=== PATIENT | male | born 1955 | race Two or more races ===

== ENCOUNTER 2020-11-27 10:19 | Inpatient (IN) | payer OTHER ==
[~2020-11-27] VITALS: Ht 182.9 cm; Wt 80.3 kg
--- NOTE | 2020-11-27 10:29 | NUR ---
PT BIBRA TO ER BED 09, PER EMS REPORT GIRLFRIEND WAS TAKING HIM TO OR FOR A CHECK UP WHEN SHE NOTED PATIENT WAS HAVING SEIZURE LIKE ACTIVITY SO SHE HAS TO MACHINE ROPE MAKER AND CALL 911. PT IS AWAKE, VERBALLY RESPONSIVE WITH MILD CONFUSION. DENIES ANY SEIZURE HISTORY. GOWNED AND PLACED ON MONITOR. PLACED ON SEIZURE PRECAUTION. PER REPORT PT IS ALCOHOLIC AND LAST KNOW ALCOHOL INTAKE WAS YESTERDAY. BG 118 ACTIVE DIRECTORY ENGINEER. AWAITING MD GUEVARA. WILL MONITOR CLOSELY.
--- NOTE | 2020-11-27 10:36 | NUR ---
DR GILLIS AT BEDSIDE FOR EVAL.
[2020-11-27] MEDS ORDERED: LORAZEPAM INJ 2 MG/ML VIAL ONE ×2 (10:45→14:00)
[2020-11-27] MEDS ORDERED: FOLIC ACID 1 MG TABLET ONE (10:50)
[2020-11-27] MEDS ORDERED: THIAMINE HCL 100 MG TABLET ONE (10:51)
[2020-11-27] MEDS ORDERED: IV NS 0.9% 1,000 ML BAG IV ONE ×2 (11:00→14:00)
[2020-11-27] MEDS ORDERED: FOLIC ACID 1 MG TABLET PO ONE (11:00)
[2020-11-27] MEDS ORDERED: THIAMINE HCL 100 MG TABLET PO ONE (11:00)
[2020-11-27] MEDS ORDERED: LORAZEPAM INJ 2 MG/ML VIAL IVP ONE (11:00)
[2020-11-27 11:12] LABS: EOSINOPHILS % (AUTO) 1.2 % (0.0-6.0); HEMATOCRIT 36 % (39-51); HEMOGLOBIN 12.2 g/dL (13.5-17.5); LYMPHOCYTES # (AUTO) 0.4 K/uL (0.8-4.8); LYMPHOCYTES % (AUTO) 11.1 % (20.0-44.0); MEAN CORPUSCULAR HGB CONC 34 g/dl (31.0-36.0); MEAN CORPUSCULAR VOLUME 107 fL (80-96); MONOCYTES # (AUTO) 0.3 K/uL (0.1-1.30); MONOCYTES % (AUTO) 7.3 % (2.0-12.0); NEUTROPHILS # (AUTO) 2.9 K/uL (1.8-8.9); NEUTROPHILS % (AUTO) 79.4 % (43.0-81.0); PLATELET COUNT (AUTO) 77 K/uL (150-450); WHITE BLOOD COUNT (AUTO) 3.7 K/uL (4.3-11.0)
--- NOTE | 2020-11-27 11:18 | NUR ---
RADIOLOGY AT BEDSIDE FOR CHEST XRAY.
[2020-11-27 11:26] LABS: CALCIUM, SERUM 7.1 mg/dL (8.5-10.1); CARBON DIOXIDE 16 mmol/L (21-32); CHLORIDE 109 mmol/L (98-107); CREATININE 1.1 mg/dL (0.6-1.3); GLUCOSE 144 mg/dL (74-106); POTASSIUM 3.8 mmol/L (3.5-5.1); SODIUM SERUM 145 mmol/L (136-145); UREA NITROGEN, BLOOD 11 mg/dL (7-18)
[2020-11-27 11:27] LABS: ALBUMIN 2.6 g/dL (3.4-5.0)
[2020-11-27 11:39] LABS: ALANINE AMINOTRANSFERASE 37 U/L (12-78); ALCOHOL, BLOOD 69 mg/dL (0-0); ALKALINE PHOSPHATASE 199 U/L (46-116); ASPARTATE AMINOTRANSFERASE 96 U/L (15-37); BILIRUBIN,DIRECT 0.3 mg/dL (0.0-0.2); BILIRUBIN,TOTAL 0.8 mg/dL (0.2-1.0); TOTAL PROTEIN, SERUM 7.4 g/dL (6.4-8.2)
--- NOTE | 2020-11-27 13:01 | NUR ---
PAGED [facility].
--- NOTE | 2020-11-27 13:05 | NUR ---
CALLED NURSING SUP FOR TELE BED.
--- NOTE | 2020-11-27 13:33 | NUR ---
EPIC PAGED AGAIN.
[2020-11-27] MEDS ORDERED: LORAZEPAM INJ 2 MG/ML VIAL IV ONE (14:00)
[2020-11-27] MEDS ORDERED: CHLORDIAZEPOXIDE HCL 25 MG CAPSULE PO ONE (14:00)
[2020-11-27] MEDS ORDERED: CHLORDIAZEPOXIDE HCL 25 MG CAPSULE ONE (14:00)
--- NOTE | 2020-11-27 14:20 | NUR ---
328-1. PRIMARY NURSE AWARE.
[2020-11-27] MEDS ORDERED: MAGNESIUM HYDROXIDE 30 ML UDC PO PRN (14:30)
[2020-11-27] MEDS ORDERED: ACETAMINOPHEN 325 MG TABLET PO PRN (14:30)
[2020-11-27] MEDS ORDERED: LORAZEPAM INJ 2 MG/ML VIAL IV PRN (14:30)
[2020-11-27] MEDS ORDERED: ONDANSETRON HCL/PF 4 MG/2 ML VIAL IVP PRN (14:30)
[2020-11-27] MEDS ORDERED: PHARMACY ADD 1 AMP MVI TO IVF DAILY ONE BAG XX PRN (14:30)
[2020-11-27] MEDS ORDERED: MAG HYDROX/AL HYDROX/SIMETH 30 ML UDC PO PRN (14:30)
[2020-11-27] MEDS ORDERED: ZOLPIDEM TARTRATE 5 MG TABLET PO PRN (14:30)
[2020-11-27] MEDS ORDERED: Z GUARD REMEDY 2 OZ OINT TP PRN (14:30)
--- NOTE | 2020-11-27 14:37 | NUR ---
TRANSFERRED TO FLOOR IN STABLE CONDITION. BEDSIDE REPORT GIVEN.
[2020-11-27] MEDS ORDERED: MVI ADULT 10ML VIAL = 1AMP 10 ML in IV NS 0.9% 1,000 ML IV PRN (15:00)
--- NOTE | 2020-11-27 15:40 | NUR ---
OUTPLACEMENT CONSULTANT NOTE- 65 Y/O MALE PT ADMITTED TO UNIT FOR ETOH WITHDRAWAL. PT ON TELE W ST 120/M. BP- 150/72, RR- 18, AFEBRILE 98.0, O2 SATS 98% NC O2 2LPM. PT IS 6'3" 143 POUNDS. PMHX- ETOH ABUSE, ASSOCIATED LIVER ISSUES. PT ON WAY TO DOCTORS VISIT WHEN HE EXPERIENCED SEIZURE TYPE TREMORS PER GF. PT W NO PMHX OF SZ ACTIVITY. GF STATES PT DOESN'T EAT. MOSTLY DRINKS ETOH. HE IS AO X PERSON PLACE PURPOSE. SOMEWHAT CONFUSED AND WITHDRAWN. WEAK AND REQUIRING FULL ASSIST TO BR OR AMBULATION.. LABS LACTIC ACID 4.6. IVF PER ORDERS, MONITOR TELE AND MONITOR FOR ETOH WITHDRAWAL SX. ATIVAN IVP FOR TREMORS ANXIETY. NPO AT PRESENT X RX. MONITOR. ASSIST. SIDE RAILS UP, BED LOCKED, CALL UREÑA IN REACH.
[2020-11-27] MEDS: IV NS 0.9% 1,000 ML IV SCH (15:45)
[2020-11-27 16:00] VITALS: BP 154/100
[2020-11-27] MEDS: Folic acid 1 MG in IV D5W 50 ML IV SCH (16:11)
[2020-11-27 17:00] LABS: LYMPHOCYTES % (MANUAL) 13 % (16-48); NEUTROPHILS % (MANUAL) 80 (42-76)
[2020-11-27 17:01] LABS: EOSINOPHILS % (MANUAL) 1 % (0-4); MONOCYTES % (MANUAL) 6 % (0-11.0)
--- NOTE | 2020-11-27 17:25 | NUR ---
RN NOTE- PT ANXIOUS, RESTLESS AND INCREASED HR. ATIVAN 2 MG IVP ADMINISTERED
[2020-11-27] MEDS: Thiamine 100 MG in IV D5W 50 ML IV SCH (17:41)
--- NOTE | 2020-11-27 17:45 | NUR ---
RN NOTE- PT RESTING QUIETLY. DECREASED HR
--- NOTE | 2020-11-27 19:00 | NUR ---
reckiked in bed at the bedside [facility] operations manager light reviewed with the patient patient with a flat affect reminded him of being NPO
--- NOTE | 2020-11-27 19:03 | NUR ---
RN CLOSING NOTE- PT IN BED SLEEPING QUIETLY, IVF INFUSING AT 10/HR. PT NPO AT PRESENT X RX. REQUIRES FULL ASSIST W AMBULATION AND BR. UNSTEADY. LACTIC ACID WAS 9.2, THEN 4.6, MOW 4.4. SIDE RAILS UP, BED LOCKED, CALL LIGHT CLOSE.
[2020-11-27 20:00] VITALS: BP 144/88
[2020-11-28] VITALS: BP 127/80
[2020-11-28] MEDS: IV NS 0.9% 1,000 ML IV SCH ×3 (01:13→22:42)
[2020-11-28 04:00] VITALS: BP 128/82
--- NOTE | 2020-11-28 05:15 | NUR ---
Closing NOTES: in bed asleep when repositioned to lay on his sides he will sccot over to lay on his back gotten OOB X2 with 2 nurses assist to the bedside commode in an attempt to have aBM. unsuccessful to have a BM. 2 nurses to put him back to bed legs are weak and difficult for him to stand and lift himself off the commode. he will make his requiste known, " how do I turn the channels on the TV" "Can I have water" "I need to have #2". noted he does take his Hospital gown off
[2020-11-28 07:03] LABS: BASOPHILS % (AUTO) 0.4 % (0.0-2.0); EOSINOPHILS % (AUTO) 0.6 % (0.0-6.0); HEMATOCRIT 34 % (39-51); HEMOGLOBIN 11.4 g/dL (13.5-17.5); LYMPHOCYTES # (AUTO) 0.3 K/uL (0.8-4.8); LYMPHOCYTES % (AUTO) 6.2 % (20.0-44.0); MEAN CORPUSCULAR HGB CONC 34 g/dl (31.0-36.0); MEAN CORPUSCULAR VOLUME 106 fL (80-96); MONOCYTES # (AUTO) 0.3 K/uL (0.1-1.30); MONOCYTES % (AUTO) 6.1 % (2.0-12.0); NEUTROPHILS # (AUTO) 3.7 K/uL (1.8-8.9); NEUTROPHILS % (AUTO) 86.7 % (43.0-81.0); PLATELET COUNT (AUTO) 51 K/uL (150-450); RED BLOOD CELL COUNT(AUTO) 3.18 MIL/uL (4.5-6.0); WHITE BLOOD COUNT (AUTO) 4.2 K/uL (4.3-11.0)
[2020-11-28 07:53] LABS: CALCIUM, SERUM 6.3 mg/dL (8.5-10.1); CREATININE 0.9 mg/dL (0.6-1.3); PHOSPHORUS 2.3 mg/dL (2.5-4.9); POTASSIUM 3.2 mmol/L (3.5-5.1)
[2020-11-28 07:55] LABS: MAGNESIUM 0.4 mg/dL (1.8-2.4)
--- NOTE | 2020-11-28 08:09 | NUR ---
RN NOTES ROOM CHANGE DONE FOR PATIENT TO ROOM 325-2. SITTER AT BEDSIDE.
--- NOTE | 2020-11-28 08:20 | NUR ---
RN NOTES PATIENT SEEN BY DR. GALINDO W/ ORDERS NOTED.
[2020-11-28] MEDS ORDERED: POTASSIUM PHOSPHATE MM 15 MMOL in IV NS 0.9% 250 ML IV SCH (08:30)
[2020-11-28] MEDS: POTASSIUM CL. PREMIX PERIPHER. 50 ML IV SCH ×3 (08:35→11:16)
[2020-11-28 09:18] LABS: BAND % (MANUAL) 1 % (0.0-5.0); LYMPHOCYTES % (MANUAL) 5 % (16-48); MONOCYTES % (MANUAL) 4 % (0-11.0); NEUTROPHILS % (MANUAL) 90 (42-76)
[2020-11-28] MEDS: Magnesium 1GM/D5W 100ML PREMIX 100 ML IV SCH ×4 (09:31→13:10)
--- NOTE | 2020-11-28 10:45 | NUR ---
RN NOTES SEEN BY GLEN MARROQUIN, FOR EVAL AND TX TODAY. ABLE TO AMBULATE W/ ASSIST.
--- NOTE | 2020-11-28 11:30 | NUR ---
SS consult SS consult requested for ETOH use. Pt is a 65-year-old, male. SW met with pt at his bedside in the med-surg unit. Pt presented calm and cooperative and appeared well-groomed and appropriately dressed. Pt was alert and oriented x4. Per chart, pt was brought in by ambulance on 11/27/20, after pt's significant other noticed the pt having seizure like activity. Pt stated that he currently lives with his significant other, Paula ([phone]) at, [address] [place], [address]; [phone]. Pt stated that he has access to adequate social support. Pt receives income from the [place] and [employer]. Pt is ambulatory and independent with his ADL's. Pt reported hx of alcohol abuse and stated, "I drink about a pint a day." Pt stated that he has attended AA meetings in the past through the [facility]. Pt reported that he is motivated to receive services for his ETOH abuse and is motivated to follow up. Pt denied hx of drug use. Pt denied hx of mental illness or hallucinations. Pt denied current SI/HI. SW offered the pt resources for substance abuse. Pt accepted the resources and thanked SW, stating that he would follow up independently. SW discussed D/C plans with the pt. Pt stated that he plans to return to his prior living arrangement at home and will be provided transportation from his significant other. PLAN: Pt plans to return to his prior living arrangement at home with his significant other. No further SS intervention at this time, however, SW will remain available as needed. RESOURCES: Substance use resources provided included: [facility] Substance Abuse Self-Helpline ([facility]) ; [facility] [id number] [facility] [place] [address] ; [facility] [address] [facility] [address] ; [facility] [address] [facility] [address] ; [facility] [address] [facility] [address] ; [facility] [address] [facility] [address] ; [facility] [place]; [facility] [place]; [facility]; Alcoholics Anonymous [facility]
[2020-11-28] MEDS: POTASSIUM PHOSPHATE MM 7.5 MMOL in IV NS 0.9% 100 ML IV SCH ×2 (12:07→15:59)
[2020-11-28] MEDS: Thiamine 100 MG in IV D5W 50 ML IV SCH (16:27)
[2020-11-28] MEDS: Folic acid 1 MG in IV D5W 50 ML IV SCH (17:14)
--- NOTE | 2020-11-28 19:20 | NUR ---
CONTINUITY OF CARE Patient is A/O x3. Sinus rhythm in the Tele monitor. NPO except medication, ongoing IVF. No c/o pain. Fall precaution maintained.
--- NOTE | 2020-11-28 19:25 | NUR ---
RN NOTES BEDSIDE ENDORSEMENT DONE W/ TRANSPORTATION REFRIGERATION TECHNICIAN RN. PATIENT RESTING IN BED, AWAKE AND VERBALLY RESPONSIVE, AT BEDSIDE. IVF INFUSING WELL; ADMINISTERED DUE IV MEDS. SAFETY MEASURES MAINTAINED.
[2020-11-28 20:30] VITALS: BP 120/88
[2020-11-29 01:23] VITALS: BP 115/85
[2020-11-29 05:29] VITALS: BP 126/85
--- NOTE | 2020-11-29 06:23 | NUR ---
END OF SHIFT REPORT Patient is A/O x3. Stable oxygen sat on room air, Oxygen sat in high 90's. Sinus rhythm in the Tele monitor HR 98. Denies pain, calm and cooperative, no symptoms of alcohol withdrawal this shift. NPO except medication, ongoing IVF. Wants to eat. Will endorse to oncoming RN
[2020-11-29] MEDS: IV NS 0.9% 1,000 ML IV SCH ×2 (06:30→16:30)
[2020-11-29 07:24] LABS: CALCIUM, SERUM 6.8 mg/dL (8.5-10.1); CREATININE 0.9 mg/dL (0.6-1.3); PHOSPHORUS 3.3 mg/dL (2.5-4.9); POTASSIUM 3.7 mmol/L (3.5-5.1)
[2020-11-29 07:28] LABS: MAGNESIUM 1.1 mg/dL (1.8-2.4)
[2020-11-29 07:34] LABS: BASOPHILS % (AUTO) 0.4 % (0.0-2.0); EOSINOPHILS % (AUTO) 2.6 % (0.0-6.0); HEMATOCRIT 36 % (39-51); HEMOGLOBIN 12.2 g/dL (13.5-17.5); LYMPHOCYTES # (AUTO) 0.3 K/uL (0.8-4.8); LYMPHOCYTES % (AUTO) 6.3 % (20.0-44.0); MEAN CORPUSCULAR HGB CONC 34 g/dl (31.0-36.0); MEAN CORPUSCULAR VOLUME 107 fL (80-96); MONOCYTES # (AUTO) 0.2 K/uL (0.1-1.30); MONOCYTES % (AUTO) 4.6 % (2.0-12.0); NEUTROPHILS # (AUTO) 3.8 K/uL (1.8-8.9); NEUTROPHILS % (AUTO) 86.1 % (43.0-81.0); PLATELET COUNT (AUTO) 51 K/uL (150-450); RED BLOOD CELL COUNT(AUTO) 3.39 MIL/uL (4.5-6.0); WHITE BLOOD COUNT (AUTO) 4.5 K/uL (4.3-11.0)
--- NOTE | 2020-11-29 07:55 | NUR ---
TELE/RN OPENING NOTES RECEIVED PATIENT IN BED. A/OX4 AT THE MOMENT. NO S/S OF APPARENT DISTRESS, CURRENTLY ON ROOM AIR. DENIES PAIN. SITTER IN ROOM. IV ACCESS ON RIGHT FA #22G WITH ONGOING IV NS RUNNING @100ML/HR. INFUSING WELL, NO S/SX OF INFILTRATION NOTED. SAFETY PRECAUTIONS IN PLACE: BED ON LOWEST LOCKED POSITION, SIDE RAILS UP X 2, CALL LIGHT WITHIN EASY REACH. WILL CONTINUE TO MONITOR.
[2020-11-29] MEDS: Magnesium 1GM/D5W 100ML PREMIX 100 ML IV SCH ×4 (08:49→12:19)
[2020-11-29 10:25] LABS: EOSINOPHILS % (MANUAL) 1 % (0-4); LYMPHOCYTES % (MANUAL) 6 % (16-48); MONOCYTES % (MANUAL) 5 % (0-11.0); NEUTROPHILS % (MANUAL) 88 (42-76)
[2020-11-29] MEDS: MULTIVITAMINS,THERAGRAN 1 UDTAB TABLET PO SCH (12:23)
[2020-11-29] MEDS: FOLIC ACID 1 MG TABLET PO SCH (12:23)
[2020-11-29] MEDS: THIAMINE HCL 100 MG TABLET PO SCH (12:23)
--- NOTE | 2020-11-29 19:22 | NUR ---
TELE/RN CLOSING NOTES PATIENT IN BED. A/OX4 AT THE MOMENT. NO S/S OF APPARENT DISTRESS, CURRENTLY ON ROOM AIR. DENIES PAIN. SITTER IN ROOM. IV ACCESS ON RIGHT FA #22G INTACT AND PATENT. SAFETY PRECAUTIONS IN PLACE: BED ON LOWEST LOCKED POSITION, SIDE RAILS UP X 2, CALL LIGHT WITHIN EASY REACH. WILL ENDORSE TO THE NEXT SHIFT FOR BG.
[2020-11-29 20:00] VITALS: BP 126/92
--- NOTE | 2020-11-29 20:10 | NUR ---
ARCHERY EQUIPMENT HAY SORTER OPENING NOTE PT A/OX3; IN BED, ABLE TO MAKE NEEDS KNOWN. TOLERATING ROOM AIR WELL WITH NO SOB. EXTERNAL CARDIAC READS SR AT 93. DENIES PAIN OR DISCOMFORT AT THIS TIME. RFA #22G S/L; PATENT AND INTACT. ALL NEEDS MET. SAFETY MEASURES IN PLACE: BED IS LOWEST LOCKED POSITION, SR UPX2, CALL LIGHT WITHIN EASY REACH, BED ALARMS ON 1:1 SITTER AT BEDSIDE. PT IN STABLE CONDITION, WILL CONTINUE PLAN OF CARE.
--- NOTE | 2020-11-29 21:07 | NUR ---
INTERNAL GRINDING MACHINE OPERATOR NOTE - INSOMNIA PT C/O NOT BEING ABLE TO FALL ASLEEP; ADMIN AMBIEN ORDERED PER PT REQUEST. WILL CONT TO MONITOR PT'S SLEEP.
[2020-11-30] VITALS: BP 120/81
[2020-11-30] MEDS: IV NS 0.9% 1,000 ML IV SCH ×3 (02:59→22:01)
[2020-11-30 03:53] VITALS: BP 131/84
--- NOTE | 2020-11-30 06:06 | NUR ---
MANUFACTURING ASSEMBLER CLOSING NOTE PT A/OX3; IN BED, ABLE TO MAKE NEEDS KNOWN. TOLERATING ROOM AIR WELL WITH NO SOB. EXTERNAL CARDIAC READS SR AT 83. DENIES PAIN OR DISCOMFORT AT THIS TIME. RFA #22G NS @ 100ML/HR; PATENT AND INTACT. ALL NEEDS MET. SAFETY MEASURES IN PLACE: BED IN LOWEST LOCKED POSITION, SR UPX2, CALL LIGHT WITHIN EASY REACH, BED ALARMS ON 1:1 SITTER AT BEDSIDE. PT IN STABLE CONDITION, WILL ENDORSE PLAN OF CARE TO ONCOMING MORNING RN.
[2020-11-30 06:56] LABS: BASOPHILS % (AUTO) 0.4 % (0.0-2.0); EOSINOPHILS % (AUTO) 3.3 % (0.0-6.0); HEMATOCRIT 29 % (39-51); LYMPHOCYTES # (AUTO) 0.3 K/uL (0.8-4.8); LYMPHOCYTES % (AUTO) 8.9 % (20.0-44.0); MEAN CORPUSCULAR HGB CONC 35 g/dl (31.0-36.0); MEAN CORPUSCULAR VOLUME 107 fL (80-96); MONOCYTES # (AUTO) 0.2 K/uL (0.1-1.30); MONOCYTES % (AUTO) 6.5 % (2.0-12.0); NEUTROPHILS # (AUTO) 2.6 K/uL (1.8-8.9); NEUTROPHILS % (AUTO) 80.9 % (43.0-81.0); RED BLOOD CELL COUNT(AUTO) 2.68 MIL/uL (4.5-6.0); WHITE BLOOD COUNT (AUTO) 3.2 K/uL (4.3-11.0)
[2020-11-30 07:12] LABS: PLATELET COUNT (AUTO) 47 K/uL (150-450)
[2020-11-30 07:14] LABS: CALCIUM, SERUM 6.9 mg/dL (8.5-10.1); MAGNESIUM 1.4 mg/dL (1.8-2.4); POTASSIUM 3.7 mmol/L (3.5-5.1)
[2020-11-30 07:40] LABS: BAND % (MANUAL) 2 % (0.0-5.0); EOSINOPHILS % (MANUAL) 3 % (0-4); LYMPHOCYTES % (MANUAL) 14 % (16-48); MONOCYTES % (MANUAL) 3 % (0-11.0); NEUTROPHILS % (MANUAL) 78 (42-76)
--- NOTE | 2020-11-30 07:56 | NUR ---
TELE/RN OPENING NOTE RECEIVED PATIENT IN BED, A/OX3, ABLE TO MAKE NEEDS KNOWN. TOLERATING ROOM AIR WELL WITH NO SOB. EXTERNAL CARDIAC READS SR 80'S. DENIES PAIN OR DISCOMFORT AT THIS TIME. RFA #22G NS @ 100ML/HR; PATENT AND INTACT. SAFETY MEASURES IN PLACE: BED IN LOWEST LOCKED POSITION, SR UPX2, CALL LIGHT WITHIN EASY REACH, BED ALARMS ON 1:1 SITTER MAULIK AT BEDSIDE. WILL CONTINUE TO MONITOR PATIENT.
[2020-11-30] MEDS: MULTIVITAMINS,THERAGRAN 1 UDTAB TABLET PO SCH (09:00)
[2020-11-30] MEDS: FOLIC ACID 1 MG TABLET PO SCH (09:00)
[2020-11-30] MEDS: THIAMINE HCL 100 MG TABLET PO SCH (09:00)
[2020-11-30] MEDS: Magnesium 1GM/D5W 100ML PREMIX 100 ML IV SCH ×4 (09:30→14:39)
--- NOTE | 2020-11-30 18:57 | NUR ---
TELE/RN CLOSING NOTE PATIENT IN BED, A/OX3, ABLE TO MAKE NEEDS KNOWN. TOLERATING ROOM AIR WELL WITH NO SOB. EXTERNAL CARDIAC READS SR 80'S. DENIES PAIN OR DISCOMFORT AT THIS TIME. RFA #22G NS @ 100ML/HR; PATENT AND INTACT. ALL NEEDS MET. SAFETY MEASURES IN PLACE: BED IN LOWEST LOCKED POSITION, SR UPX2, CALL LIGHT WITHIN EASY REACH. WILL ENDORSE TO THE NEXT SHIFT FOR BG.
--- NOTE | 2020-11-30 19:00 | NUR ---
MS RN OPENING NOTE RECEIVED PT IN BED, RESTING A/OX3-4, PT STABLE ON ROOM AIR. NO S/S OF RESPIRATORY DISTRESS. PT IS ON EXTERNAL OLIVING MACHINE OPERATOR READING SR 95. NO C/O PAIN AT THIS TIME. IV ACCESS IN RIGHT FOREARM # 22, IV IS INTACT, PATENT, AND FLUSHING WELL. SAFETY MEASURES MAINTAINED AT ALL TIMES. BED IN LOWEST LOCKED POSITION, HOB ELEVATED, SIDE RAILS UP X2. CALL LIGHT AND TABLE WITHIN REACH. WILL CONTINUE WITH PLAN OF CARE.
[2020-11-30 20:00] VITALS: BP 129/77
[2020-12-01] VITALS (7 sets, daily range): BP systolic 126–135; BP diastolic 90–94
--- NOTE | 2020-12-01 06:30 | NUR ---
RN CLOSING NOTE PT AWAKE IN BED. STABLE THROUGHOUT SHIFT. WILL ENDORSE TO ONCOMING NURSE
[2020-12-01 07:28] LABS: BASOPHILS % (AUTO) 0.4 % (0.0-2.0); EOSINOPHILS % (AUTO) 3.5 % (0.0-6.0); HEMATOCRIT 29 % (39-51); HEMOGLOBIN 9.9 g/dL (13.5-17.5); LYMPHOCYTES # (AUTO) 0.2 K/uL (0.8-4.8); LYMPHOCYTES % (AUTO) 7.4 % (20.0-44.0); MEAN CORPUSCULAR HGB CONC 34 g/dl (31.0-36.0); MEAN CORPUSCULAR VOLUME 109 fL (80-96); MONOCYTES # (AUTO) 0.3 K/uL (0.1-1.30); MONOCYTES % (AUTO) 8.6 % (2.0-12.0); NEUTROPHILS # (AUTO) 2.6 K/uL (1.8-8.9); NEUTROPHILS % (AUTO) 80.1 % (43.0-81.0); PLATELET COUNT (AUTO) 53 K/uL (150-450); RED BLOOD CELL COUNT(AUTO) 2.68 MIL/uL (4.5-6.0); WHITE BLOOD COUNT (AUTO) 3.2 K/uL (4.3-11.0)
--- NOTE | 2020-12-01 07:36 | NUR ---
SEO EXPERT OPENING NOTES RECEIVED PT IN BED, RESTING A/OX3-4, PT STABLE ON ROOM AIR. NO S/S OF RESPIRATORY DISTRESS. PT IS ON EXTERNAL THEATRICAL VARIETY AGENT READING SR HR AT 80'S. NO C/O PAIN AT THIS TIME. IV ACCESS IN RIGHT FOREARM # 22, IV IS INTACT, PATENT, AND FLUSHING WELL. SAFETY MEASURES IN PLACE BED IN LOWEST LOCKED POSITION, HOB ELEVATED, SIDE RAILS UP X2. CALL LIGHT AND TABLE WITHIN REACH. WILL CONTINUE TO MONITOR ACCORDINGLY.
[2020-12-01 07:53] LABS: CALCIUM, SERUM 7.7 mg/dL (8.5-10.1); CREATININE 0.9 mg/dL (0.6-1.3); MAGNESIUM 1.4 mg/dL (1.8-2.4); PHOSPHORUS 2.9 mg/dL (2.5-4.9); POTASSIUM 3.6 mmol/L (3.5-5.1)
--- NOTE | 2020-12-01 08:00 | NUR ---
RN NOTES MG 1.4, DR. GALINDO MADE AWARE WITH ORDER MADE AND CARRIED OUT.
[2020-12-01] MEDS: FOLIC ACID 1 MG TABLET PO SCH (09:01)
[2020-12-01] MEDS: THIAMINE HCL 100 MG TABLET PO SCH (09:01)
[2020-12-01] MEDS: Magnesium 1GM/D5W 100ML PREMIX 100 ML IV SCH ×4 (09:01→12:05)
[2020-12-01] MEDS: MULTIVITAMINS,THERAGRAN 1 UDTAB TABLET PO SCH (09:01)
[2020-12-01] MEDS: IV NS 0.9% 1,000 ML IV SCH ×2 (09:03→17:55)
--- NOTE | 2020-12-01 18:40 | NUR ---
TIMBER SIZER CLOSING NOTES PT IN BED, RESTING A/OX3-4, PT STABLE ON ROOM AIR. NO S/S OF RESPIRATORY DISTRESS. PT IS ON EXTERNAL STAFFING CLERK READING SR HR AT 80'S. NO C/O PAIN AT THIS TIME. IV ACCESS IN RIGHT FOREARM # 22, IV IS INTACT, PATENT AND FLUSHES WELL. SAFETY MEASURES IN PLACE BED IN LOWEST LOCKED POSITION, HOB ELEVATED, SIDE RAILS UP X2. CALL LIGHT AND TABLE WITHIN REACH. ALL NEEDS ATTENDED AND MET, DUE MEDS GIVEN ORDERED. WILL ENDORSE TO ONCOMING SHIFT FOR BG.
--- NOTE | 2020-12-01 19:00 | NUR ---
ORACLE ADF CONSULTANT OPENING NOTE RECEIVED PT IN BED, RESTING A/OX3-4, PT STABLE ON ROOM AIR. NO S/S OF RESPIRATORY DISTRESS. PT IS ON EXTERNAL ELECTRONIC EQUIPMENT MAINT TECH READING SR @ 63. NO C/O PAIN AT THIS TIME. IV ACCESS IN RIGHT FOREARM # 22, NS INFUSING @ 100ML/HR, IV IS INTACT, PATENT, AND FLUSHING WELL. SAFETY MEASURES MAINTAINED AT ALL TIMES. BED IN LOWEST LOCKED POSITION, HOB ELEVATED, SIDE RAILS UP X2. CALL LIGHT AND TABLE WITHIN REACH. WILL CONTINUE WITH PLAN OF CARE.
[2020-12-02 00:57] VITALS: BP 137/89
[2020-12-02 04:40] VITALS: BP 136/90
[2020-12-02] MEDS: IV NS 0.9% 1,000 ML IV SCH (04:48)
[2020-12-02 06:30] LABS: BASOPHILS % (AUTO) 0.4 % (0.0-2.0); EOSINOPHILS % (AUTO) 3.2 % (0.0-6.0); HEMATOCRIT 35 % (39-51); HEMOGLOBIN 11.8 g/dL (13.5-17.5); LYMPHOCYTES # (AUTO) 0.3 K/uL (0.8-4.8); LYMPHOCYTES % (AUTO) 7.1 % (20.0-44.0); MEAN CORPUSCULAR HGB CONC 33 g/dl (31.0-36.0); MEAN CORPUSCULAR VOLUME 110 fL (80-96); MONOCYTES # (AUTO) 0.5 K/uL (0.1-1.30); MONOCYTES % (AUTO) 10.5 % (2.0-12.0); NEUTROPHILS # (AUTO) 3.5 K/uL (1.8-8.9); NEUTROPHILS % (AUTO) 78.8 % (43.0-81.0); PLATELET COUNT (AUTO) 72 K/uL (150-450); RED BLOOD CELL COUNT(AUTO) 3.22 MIL/uL (4.5-6.0); WHITE BLOOD COUNT (AUTO) 4.5 K/uL (4.3-11.0)
--- NOTE | 2020-12-02 06:30 | NUR ---
FOOD PRODUCTS TESTER CLOSING NOTE PT IS AWAKE IN BED AT THIS TIME. A/OX4, ABLE TO MAKE NEEDS KNOWN. PT IS AMBULATORY WITH BRP, STABLE ON ROOM AIR, NO SOB NOTED, NO S/S OF RESPIRATORY DISTRESS. PT IS ON EXTERNAL TECHNICAL SERVICE SPECIALIST READING ST/ SR @ 120. PT DENIES PAIN OR DISCOMFORT AT THIS TIME. SKIN IS INTACT, IV ACCESS IS INTACT AND PATENT, INFUSING NS @ 100ML/HR. ALL NEEDS HAVE BEEN MET. MEDICATIONS ADMINISTERED PER ORDER, SAFETY, SEIZURE, AND ASPIRATION PRECAUTIONS MAINTAINED AT ALL TIMES. BED IN LOWEST, LOCKED POSITION WITH BED ALARM ON, SIDE RAILS UP X2. HOB ELEVATED. CALL LIGHT AND TABLE WITHIN REACH. WILL ENDORSE TO ONCOMING NURSE FOR BG.
[2020-12-02 07:19] LABS: CALCIUM, SERUM 8.1 mg/dL (8.5-10.1); MAGNESIUM 1.4 mg/dL (1.8-2.4); PHOSPHORUS 3.6 mg/dL (2.5-4.9); POTASSIUM 3.7 mmol/L (3.5-5.1)
--- NOTE | 2020-12-02 07:24 | NUR ---
COMMUNITY RELATIONS DIRECTOR OPENING NOTES RECEIVED PT IN BED, RESTING A/OX3-4, PT STABLE ON ROOM AIR. NO S/S OF RESPIRATORY DISTRESS. PT IS ON EXTERNAL RN CARDIAC REHAB READING SR HR AT 80'S. NO C/O PAIN AT THIS TIME. IV ACCESS IN RIGHT FOREARM # 22, IV IS INTACT, PATENT, AND FLUSHING WELL. SAFETY MEASURES IN PLACE BED IN LOWEST LOCKED POSITION, HOB ELEVATED, SIDE RAILS UP X2. CALL LIGHT AND TABLE WITHIN REACH. WILL CONTINUE TO MONITOR ACCORDINGLY.
[2020-12-02 08:00] VITALS: BP 128/86
[2020-12-02] MEDS: MULTIVITAMINS,THERAGRAN 1 UDTAB TABLET PO SCH (08:09)
[2020-12-02] MEDS: THIAMINE HCL 100 MG TABLET PO SCH (08:09)
[2020-12-02] MEDS: FOLIC ACID 1 MG TABLET PO SCH (08:09)
[2020-12-02] MEDS ORDERED: MAGNESIUM OXIDE 400 MG TABLET PO ONE (10:30)
[2020-12-02] MEDS ORDERED: Magnesium 1GM/D5W 100ML PREMIX 100 ML IV SCH (10:30)
[2020-12-02 12:00] VITALS: BP 127/78
--- NOTE | 2020-12-02 14:25 | NUR ---
HAMMERER HELPERSKIN DIVING TEACHER NOTES DISCHARGE PATIENT IN STABLE CONDITION, VS WITHIN NORMAL LIMITS. HOME MEDICATIONS INSTRUCTIONS AND FOLLOW UP DISCUSSED WITH PATIENT, PATIENT VERBALIZED UNDERSTANDING. FOLLOW WITH PRIMARY CARE PHYSICIAN IN 1-2 DAYS INSTRUCTED. IV ACCESS REMOVED, COVERED WITH GAUZE, NO BLEEDING NOTED. ARMBAND REMOVED. BELONGINGS SIGNED AND ACCOUNTED FOR. WALKED TO [facility] ACCOMPANIED BY LORETTA CHRISTENSEN), LEFT UNIT WITH IN STBALE CONDITION. CHARGE NURSE AND MD AWARE OF DISCHARGE.
== END 2020-12-02 14:25 | disposition home or self-care (01) | DRG 897 ==
LOC: ER 10:25 → TELE 14:21
PROVIDERS: ADMIT Family Medicine; ATTEND Family Medicine
DX: F10.131 Alcohol abuse with withdrawal delirium (principal); E44.0 Moderate protein-calorie malnutrition; E87.2 Acidosis; R56.9 Unspecified convulsions; Y90.3 Blood alcohol level of 60-79 mg/100 ml; E83.51 Hypocalcemia; D72.819 Decreased white blood cell count, unspecified; Z20.822 Contact with and (suspected) exposure to COVID-19; D53.9 Nutritional anemia, unspecified; E83.42 Hypomagnesemia; E87.6 Hypokalemia; R74.01 Elevation of levels of liver transaminase levels; I10 Essential (primary) hypertension
CPT/HCPCS: 36415; 70450-TC; 71045-TC; 80048-TC; 80061-TC; 80076-TC; 83605-TC; 83735-TC; 84100-TC; 85025-TC; 85730-TC; 87081-TC; 97112-TC; 97116-TC; 97530-TC; G0378; G0480; J2060; J3411; J3475; J3480; J3490; J7030; J7040; J7060